=== PATIENT | female | born 1985 | race Two or more races ===

== ENCOUNTER 2019-01-13 01:10 | Inpatient (IN) | payer MEDICAID, OTHER ==
[~2019-01-13] VITALS: Ht 158.8 cm; Wt 98.0 kg
[~2019-01-13 01:10] MED LIST: PREN-19 PO
[2019-01-13 01:39] VITALS: BP 127/75; PULSE 91; RESP 18
[2019-01-13] MEDS ORDERED: METHYLERGONOVINE 0.2 MG INJ IM PRN ×2 (03:00→17:00)
[2019-01-13] MEDS ORDERED: CARBOPROST 250 MCG INJ IM PRN ×2 (03:00→17:00)
[2019-01-13] MEDS ORDERED: LIDOCAINE 1% (MPF) 30 ML INJ INJ PRN (03:00)
[2019-01-13] MEDS ORDERED: OXYTOCIN 30 UNITS/LR 500 ML IV SCH ×2 (03:00)
[2019-01-13] MEDS ORDERED: OXYTOCIN 30 UNITS/LR 500 ML IV PRN ×2 (03:00→17:00)
[2019-01-13] MEDS ORDERED: MISOPROSTOL 200 MCG TAB PR PRN ×2 (03:00→17:00)
[2019-01-13] MEDS ORDERED: IBUPROFEN 600 MG TAB PO PRN (03:00)
[2019-01-13] MEDS: LACTATED RINGER'S 1,000 ML IV SCH ×2 (04:38→10:42)
[2019-01-13] MEDS: BUTORPHANOL 2 MG INJ IV PRN ×2 (09:35→12:28)
[2019-01-13] MEDS: OXYTOCIN 30 UNITS/LR 500 ML IV SCH ×2 (13:13→15:24)
[2019-01-13] MEDS ORDERED: OXYCODONE/ASPIRIN (4.88/325) TAB PO PRN (17:00)
[2019-01-13] MEDS ORDERED: WITCH HAZEL/GLYCERIN PAD PR PRN (17:00)
[2019-01-13] MEDS ORDERED: ZOLPIDEM 5 MG TAB PO PRN (17:00)
[2019-01-13] MEDS ORDERED: LANOLIN HPA 1 PKT TOP PRN (17:00)
[2019-01-13] MEDS ORDERED: BENZOCAINE 20% 56 ML SPRAY TOP PRN (17:00)
[2019-01-13] MEDS: OXYCODONE/ASPIRIN (4.88/325) TAB PO PRN ×2 (17:11→20:42)
[2019-01-13 17:35] VITALS: BP 130/87; PULSE 91; RESP 18
[2019-01-13] MEDS: IBUPROFEN 600 MG TAB PO SCH (18:00)
[2019-01-13 20:00] VITALS: BP 114/62; PULSE 91; RESP 20
[2019-01-13] MEDS: SENNA/DOCUSATE NA (8.6MG/50MG) TAB PO SCH (20:42)
[2019-01-14] VITALS (7 sets, daily range): BP systolic 102–138; BP diastolic 62–87; PULSE 79–94; RESP 17–18
[2019-01-14] MEDS: IBUPROFEN 600 MG TAB PO SCH ×5 (00:05→23:38)
[2019-01-14] MEDS ORDERED: LACTATED RINGER'S 1,000 ML IV SCH (07:00)
[2019-01-14] MEDS ORDERED: ACETAMINOPHEN 1000MG/100ML IV 100 ML IVPB ONE (08:00)
[2019-01-14] MEDS: SENNA/DOCUSATE NA (8.6MG/50MG) TAB PO SCH ×2 (09:00→21:03)
[2019-01-15 03:48] VITALS: BP 107/73; PULSE 90; RESP 18
[2019-01-15] MEDS: IBUPROFEN 600 MG TAB PO SCH ×2 (06:00→12:00)
[2019-01-15 08:00] VITALS: BP 122/81; PULSE 88; RESP 18
[2019-01-15] MEDS: SENNA/DOCUSATE NA (8.6MG/50MG) TAB PO SCH (09:00)
[2019-01-15] MEDS ORDERED: DIPHTH/TET/ACEL PERTUSS (ADULT) 0.5 ML VIAL IM* ONE (09:00)
[2019-01-15] MEDS: OXYCODONE/ASPIRIN (4.88/325) TAB PO PRN (14:51)
[2019-01-15 15:50] VITALS: BP 127/73; PULSE 84; RESP 18
== END 2019-01-15 17:56 | disposition home or self-care (01) | DRG 807 ==
LOC: L-D 01:10 → PP1 16:56
PROVIDERS: ADMIT Obstetrics & Gynecology; ATTEND Obstetrics & Gynecology
PROC: 10E0XZZ Delivery of Products of Conception, External Approach (ICD-10-PCS; principal; 2019-01-14)
PROC: 0KQM0ZZ Repair Perineum Muscle, Open Approach (ICD-10-PCS; 2019-01-14)
PROC: 3E033VJ Introduction of Other Hormone into Peripheral Vein, Percutaneous Approach (ICD-10-PCS; 2019-01-14)
DX: O48.0 Post-term pregnancy (principal); Z37.0 Single live birth; O70.1 Second degree perineal laceration during delivery; Z3A.40 40 weeks gestation of pregnancy
CPT/HCPCS: 80053; 81001; 85025; 85384; 85610; 85730; 86592; 86703; 86850; 86900; 86901; 87340; 93005; G0463; J0131; J0595; J2590; J7120

== ENCOUNTER 2019-03-17 05:41 | Day surgery (SDC) | payer OTHER ==
[~2019-03-17] VITALS: Ht 157.5 cm; Wt 91.2 kg
[2019-03-17] VITALS (14 sets, daily range): BP systolic 108–134; BP diastolic 67–82; PULSE 70–94; RESP 14–25; Ht 157.5 cm; Wt 91.2 kg
[2019-03-17] MEDS ORDERED: LACTATED RINGER'S 1,000 ML IV ONE (06:00)
[2019-03-17] MEDS ORDERED: BUPIVACAINE 0.5%/EPI (SDV) 30 ML INJ ONE (07:27)
[2019-03-17] MEDS ORDERED: FENTAnyl 50 MCG/ML VIAL ONE ×2 (07:59→09:15)
[2019-03-17] MEDS ORDERED: PROPOFOL 20 ML ONE (07:59)
[2019-03-17] MEDS ORDERED: LIDOCAINE 2% (SDV) 5 ML INJ ONE (07:59)
[2019-03-17] MEDS ORDERED: MIDAZOLAM 1 MG/ML 2 ML INJ ONE (07:59)
[2019-03-17] MEDS ORDERED: HYDROmorphONE 1 MG/5 ML IV SYRINGE IV PRN (08:00)
[2019-03-17] MEDS ORDERED: CEFAZOLIN 1 GM INJ ONE (08:09)
[2019-03-17] MEDS ORDERED: ROCURONIUM 50 MG INJ ONE (08:09)
[2019-03-17] MEDS ORDERED: ROPIVACAINE 0.5 % 30 ML VIAL ONE (09:01)
[2019-03-17] MEDS ORDERED: SUGAMMADEX SODIUM 200 MG/2 ML VIAL IV ONE (09:14)
[2019-03-17] MEDS ORDERED: KETOROLAC 30 MG INJ ONE (09:15)
[2019-03-17] MEDS ORDERED: ONDANSETRON 4 MG INJ ONE ×2 (09:16→09:29)
[2019-03-17] MEDS ORDERED: MEPERIDINE 25 MG INJ ONE (09:29)
[2019-03-17] MEDS ORDERED: ONDANSETRON 4 MG INJ IV PRN (09:30)
[2019-03-17] MEDS ORDERED: MEPERIDINE 25 MG INJ IV PRN (09:30)
[2019-03-17] MEDS: HYDROmorphONE 1 MG/5 ML IV SYRINGE IV PRN ×2 (09:46→09:56)
[2019-03-17] MEDS: KETOROLAC 30 MG INJ IV PRN ×2 (10:11→10:24)
[2019-03-17] MEDS ORDERED: FENTAnyl 50 MCG/ML VIAL IV PRN ×3 (10:30)
[2019-03-17] MEDS ORDERED: OXYCODONE/ACETAMINOPHEN (5/325) TAB PO PRN (11:30)
== END 2019-03-17 15:20 | disposition home or self-care (01) ==
LOC: SDS 05:41
PROVIDERS: ATTEND Obstetrics & Gynecology
DX: Z30.2 Encounter for sterilization (principal)
CPT/HCPCS: 58661; 84703; 88302; J0690; J1170; J1885; J2175; J2250; J2405; J2795; J3010; Z7512; Z7610